=== PATIENT | female | born 1940 | race Caucasian/White ===

== ENCOUNTER 2021-04-11 14:28 | Emergency (ER) | payer MEDICARE, MEDICAID ==
--- NOTE | 2021-04-11 15:03 | EDM.PDOC ---
ED HPI GENERAL MEDICAL PROBLEM - General Chief Complaint: Upper Extremity Injury/Pain Stated Complaint: LEFT SHOULDER INJURY Time Seen by Provider: 04/11/21 14:30 Source of Information: Reports: Patient, Family (family) History Limitations: Reports: No Limitations - History of Present Illness INITIAL COMMENTS - FREE TEXT/NARRATIVE: 81-year-old female presents to the emergency room with complaints of left shoulder and arm pain. She was out walking in this beautiful day when she is not sure she rolled her right ankle and fell. She was bracing her fall likely on outstretched hand and causing pain discomfort to her left shoulder and upper arm. She reports the pain is about a 7 or 8 out of 10 with movement. She is bracing the arm by holding her left arm, hand with her right hand. Denies any numbness or tingling. She denies head trauma or loss consciousness. She was able to ambulate in to the emergency room with assistance of a family member. She is right-hand dominant. Onset: Today Onset Date: 04/11/21 Onset Time: 13:00 Duration: Minutes:, Constant Location: Reports: Upper Extremity, Left Quality: Reports: Sharp Severity: Moderate Improves with: Reports: Immobilization Worsens with: Reports: Movement Context: Reports: Trauma Left Shoulder Pain Score (Numeric/FACES): 5 - Related Data Allergies Allergy/AdvReac Type Severity Reaction Status Date / Time aspirin Allergy Stomach Verified 04/11/21 15:20 Upset Home Meds: Home Meds Mirtazapine [Remeron] 30 mg PO BEDTIME 04/11/21 [History] Rosuvastatin Calcium 20 mg PO BEDTIME 04/11/21 [History] Vit A/Vit C/Vit E/Zinc/Copper [Preservision] 1 tab PO DAILY 04/11/21 [History] lisinopriL [Lisinopril] 10 mg PO DAILY 04/11/21 [History] Review of Systems - Review of Systems Review Of Systems: Comprehensive ROS is negative, except as noted in HPI. ED EXAM, GENERAL - Physical Exam Exam: See Below Exam Limited By: No Limitations General Appearance: Alert, WD/WN, Mild Distress Eye Exam: Bilateral Eye: EOMI Ears: Hearing Grossly Normal Nose: Normal Inspection Throat/Mouth: Normal Inspection, Normal Voice, No Airway Compromise Head: Atraumatic, Normocephalic Neck: Normal Inspection, Supple, Non-Tender, Full Range of Motion Back Exam: Normal Inspection Extremities: Normal Inspection, Arm Pain (Left), Limited Range of Motion (Left shoulder, left elbow), Other (Patient is a guarded restricting movement of her left shoulder by bracing with her right hand. She has normal finger wrist and forearm range of motion. I made to gently flex and extend at her elbow with minimal discomfort. She reports just minimal tenderness over the lateral elbow. She has restr) Neurological: Alert, Oriented, CN II-XII Intact, No Motor/Sensory Deficits Psychiatric: Normal Affect, Normal Mood Skin Exam: Warm, Dry, Intact, Normal Color, No Rash Course - Vital Signs Last Recorded V/S: Last Vital Signs Temp 97.5 F 04/11/21 14:54 Pulse 79 04/11/21 14:54 Resp 18 04/11/21 14:54 BP 129/68 04/11/21 14:54 Pulse Ox 95 04/11/21 14:54 - Orders/Labs/Meds Orders: Active Orders 24 hr Category Date Time Status Meperidine [Demerol] Med 04/11/21 15:30 Active 25 mg IM ONETIME Medication Orders Meperidine HCl (Meperidine Pf 25 Mg/Ml Syringe) 25 mg IM ONETIME ANISH Last Admin: 04/11/21 15:39 Dose: 25 mg Documented by: ALEJANDRO Meds: Medications Generic Name Dose Route Start Last Admin Trade Name Freq PRN Reason Stop Dose Admin Meperidine HCl 25 mg 04/11/21 15:30 04/11/21 15:39 Meperidine Pf 25 Mg/Ml Syringe IM 25 mg ONETIME ANISH Administration Discontinued Medications Generic Name Dose Route Start Last Admin Trade Name Freq PRN Reason Stop Dose Admin Meperidine HCl Confirm 04/11/21 15:28 Meperidine Pf 25 Mg/Ml Syringe Administered 04/11/21 15:29 Dose 25 mg .ROUTE .[facility] - Radiology Interpretation Free Text/Narrative:: X-ray shoulder left 2 views Discussion: Acute subcapital left humeral neck fracture. No dislocation Impression; As above X-rays 2 views left elbow Discussion: No fracture, dislocation or other osseous acute abnormality Impression: No acute osseous abnormalities - Re-Assessments/Exams Free Text/Narrative Re-Assessment/Exam: 04/11/21 16:18 Was given IM Demerol for pain relief. She was fitted for a sling for her left shoulder. She tolerated well. Reviewed x-rays with her son who is a chiropractor. Discussed follow-up appointments and reasonable expectations for following up and her rehabilitative course for her left shoulder. Departure - Departure Time of Disposition: 15:57 Disposition: Home, Self-Care 01 Condition: Good Clinical Impression: Proximal humerus fracture Qualifiers: Encounter type: initial encounter Fracture type: closed Fracture morphology: other fracture Fracture alignment: nondisplaced Laterality: left Qualified Code(s): S42.295A - Other nondisplaced fracture of upper end of left humerus, initial encounter for closed fracture - Discharge Information Instructions: Humerus Fracture Treated With Immobilization, [id number] Referrals: Stefani Hankins MD [Primary Care Provider] - Forms: ED Department Discharge Care Plan Goals: 1. Sling for comfort. Continue for 2 or 3 weeks. 2. Follow-up with Dr. Stefani Spence in 10 to 14 days for repeat x-ray left shoulder 3. Orthopedics 1 month in [place] for an x-ray 4. May begin gentle physical therapy range of motion exercises initiating pendulum exercises with physical therapy after first x-ray visit with Dr. Stefani Spence. 5. Ibuprofen or Tylenol for pain or discomfort. Ice packs for pain and swelling. Sepsis Event Note (ED) - Evaluation Sepsis Screening Result: No Definite Risk - Focused Exam Vital Signs: Vital Signs Temp Pulse Resp BP Pulse Ox 04/11/21 14:54 97.5 F 79 18 129/68 95 - My Orders Last 24 Hours: My Active Orders 04/11/21 15:30 Meperidine [Demerol] 25 mg IM ONETIME - Assessment/Plan Last 24 Hours: My Active Orders 04/11/21 15:30 Meperidine [Demerol] 25 mg IM ONETIME Assessment:: Left proximal humerus fracture closed nondisplaced Left elbow pain Right ankle pain Plan: 1. Sling for comfort. Would wear the sling for the next 2 to 3 weeks. 2. Follow-up with Dr. Stefani Spence in 10 to 14 days for an x-ray left shoulder 3. May begin PT for gentle pendulum exercises after your next appointment with Dr. Stefani Spence. 4. Follow-up with orthopedics in 1 month. 5. You may take Tylenol or ibuprofen for any pain or discomfort as needed.
[2021-04-11] MEDS ORDERED: Meperidine PF 25 MG/ML Syringe ONE (15:28)
[2021-04-11] MEDS ORDERED: Meperidine PF 25 MG/ML Syringe IM SCH (15:30)
--- NOTE | 2021-04-11 15:55 | CR ---
[id number] RAD/RAD Shoulder Left 2V Min EXAM: 4 VIEWS LEFT SHOULDER. INDICATION: FALL, LEFT SHOULDER PAIN. COMPARISON: None. DISCUSSION: Acute subcapital left humeral neck fracture. No dislocation. IMPRESSION: 1. As above. Christian Mcbride DO 04/11/21 [id number] Thank you for allowing us to participate in the care of your patient.
--- NOTE | 2021-04-11 15:56 | CR ---
[id number] RAD/RAD Elbow Left 2V EXAM: 2 VIEWS LEFT ELBOW. INDICATION: FALL, TRAUMA, LEFT ARM PAIN. COMPARISON: None. DISCUSSION: No fracture, dislocation or other acute osseous abnormality. IMPRESSION: 1. No acute osseous abnormalities. Christian Mcbride DO 04/11/21 [id number] Thank you for allowing us to participate in the care of your patient.
== END 2021-04-11 16:41 | disposition home or self-care (01) ==
LOC: KA.ED 14:28
DX: S42.295A Other nondisplaced fracture of upper end of left humerus, initial encounter for closed fracture (principal); Z88.8 Allergy status to other drugs, medicaments and biological substances; Z79.899 Other long term (current) drug therapy; W18.39XA Other fall on same level, initial encounter
CPT/HCPCS: 73030-LT; 73070-LT; 96372; 99283; J2175

== ENCOUNTER 2022-12-09 09:46 | Emergency (ER) | payer MEDICARE, MEDICAID ==
[2022-12-09 10:25] LABS: APPEARANCE,URINE CLEAR (CLEAR); BILIRUBIN,URINE NEGATIVE (NEGATIVE); COLOR,URINE YELLOW (YELLOW); GLUCOSE,URINE NEGATIVE (NEGATIVE); KETONES,URINE NEGATIVE (NEGATIVE); LEUKOCYTE ESTERASE,URINE NEGATIVE (NEGATIVE); NITRITE,URINE NEGATIVE (NEGATIVE); OCCULT BLOOD,URINE TRACE-INTACT (NEGATIVE); PROTEIN,URINE NEGATIVE (NEGATIVE); UROBILINOGEN,URINE 0.2 E.U./dL (0.2-1.0)
[2022-12-09 10:26] LABS: BASOPHILS ABSOLUTE AUTO 0.02 10^3/uL (0.00-0.10); BASOPHILS PERCENT AUTO 0.3 % (0.0-1.0); EOSINOPHILS ABSOLUTE AUTO 0.11 10^3/uL (0.10-0.30); EOSINOPHILS PERCENT AUTO 1.4 % (1.0-3.0); HEMATOCRIT 42.4 % (37.0-47.0); HEMOGLOBIN 14.2 g/dL (12.0-16.0); LYMPHOCYTES ABSOLUTE AUTO 2.32 10^3/uL (1.00-4.00); LYMPHOCYTES PERCENT AUTO 30.1 % (20.0-40.0); MEAN CORPUSCULAR HGB CONC 33.5 g/dL (32.0-36.0); MEAN CORPUSCULAR VOLUME 92.6 fL (82.0-92.0); MEAN PLATELET VOLUME 8.8 fL (7.4-10.4); MONOCYTES ABSOLUTE AUTO 0.75 10^3/uL (0.10-0.80); MONOCYTES PERCENT AUTO 9.7 % (2.0-8.0); NEUTROPHILS ABSOLUTE AUTO 4.52 10^3/uL (2.50-7.00); NEUTROPHILS PERCENT AUTO 58.5 % (50.0-70.0); PLATELET COUNT,PLT 201 10^3/uL (150-400); RED BLOOD CELL COUNT 4.58 10^6/uL (3.80-5.50); RED CELL DISTRIBUTION WIDTH 12.3 % (11.5-14.5); WHITE BLOOD CELL COUNT,WBC 7.72 10^3/uL (5.00-10.00)
[2022-12-09 10:30] LABS: BACTERIA,URINE RARE /HPF (NONE TO FEW); EPITHELIAL CELLS,URINE RARE /LPF; WBC,URINE 0-5 /HPF (0-5)
[2022-12-09] MEDS ORDERED: Labetalol 100 MG/20 ML MDV IVPUSH ONE ×2 (10:31→11:24)
[2022-12-09 10:40] LABS: ALBUMIN 3.76 g/dL (3.40-5.00); ANION GAP 12.6 mmol/L (5-15); BILIRUBIN TOTAL 0.4 mg/dL (0.2-1.0); CALCIUM 9.1 mg/dL (8.7-10.3); CARBON DIOXIDE,CO2 29.1 mmol/L (21.0-32.0); CREATININE 0.88 mg/dL (0.51-1.17); EST CRCL DRUG DOSING (CG) 45.88 mL/min; POTASSIUM,K 3.7 mmol/L (3.5-5.1); PROTEIN TOTAL,TP 7.4 g/dL (6.4-8.2)
[2022-12-09] MEDS ORDERED: Metoprolol Tartrate 50 MG Tab PO ONE (11:24)
== END 2022-12-09 11:55 | disposition home or self-care (01) ==
LOC: KA.ED 09:46
DX: I10 Essential (primary) hypertension (principal); E78.00 Pure hypercholesterolemia, unspecified; Z79.899 Other long term (current) drug therapy; Z88.8 Allergy status to other drugs, medicaments and biological substances
CPT/HCPCS: 71045; 80053; 81001; 83880; 84484; 85025; 93010; 96374; 99284; 99284-25; A9270-GY; J3490